=== PATIENT | male | born 1995 | race Caucasian/White ===

== ENCOUNTER 2017-07-24 18:53 | Emergency (ER) | payer SELFPAY ==
[~2017-07-24] VITALS: Ht 177.8 cm; Wt 75.0 kg
[2017-07-24 18:55] VITALS: BP 123/60; TEMP 99.3
[2017-07-24] MEDS ORDERED: PREDNISONE20 MG PO (19:56)
[2017-07-24 20:07] VITALS: PULSE 78
== END 2017-07-24 20:08 | disposition home or self-care (01) ==
LOC: COL.ER 18:53
DX: J02.9 Acute pharyngitis, unspecified (principal); F12.90 Cannabis use, unspecified, uncomplicated